=== PATIENT | female | born 1980 | race Caucasian/White ===

== ENCOUNTER 2016-10-17 15:30 | Emergency (ER) | payer BC, OTHER ==
[2016-10-17 15:56] VITALS: BP 137/75; PULSE 69; RESP 18; TEMP 97.9
[2016-10-17] MEDS ORDERED: DIPH,PERTUS(ACELL)TETVAC-LF 0.5 ML VIAL IM ONE (16:07)
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
== END 2016-10-17 16:32 | disposition home or self-care (01) ==
LOC: EC 15:30
DX: S71.151A Open bite, right thigh, initial encounter (principal); Z23 Encounter for immunization; W50.3XXA Accidental bite by another person, initial encounter; Y99.0 Civilian activity done for income or pay
CPT/HCPCS: 90471; 90715; 99283

== ENCOUNTER → 2017-11-27 | Outpatient (CLI) | payer OTHER ==
--- NOTE | 2017-11-28 07:19 | US ---
EXAMINATION TYPE: US pelvic complete DATE OF EXAM: 11/27/2017 COMPARISON: NONE CLINICAL HISTORY: R10.2 Pelvic Pain. Patient states doctor felt uterine enlargement. No pain. TECHNIQUE: Transabdominal (TA). Transabdominal sonographic images of the pelvis were acquired. Date of LMP: 11/13/2017, EXAM MEASUREMENTS: Uterus: 9.0 x 6.8 x 4.7 cm Endometrial Stripe: 0.9 cm Right Ovary: 3.6 x 2.2 x 1.8 cm Left Ovary: 3.3 x 2.0 x 2.0 cm 1. Uterus: Retroverted wnl 2. Endometrium: wnl 3. Right Ovary: wnl 4. Left Ovary: wnl 5. Bilateral Adnexa: wnl 6. Posterior cul-de-sac: no free fluid Cervix- wnl IMPRESSION: Mildly prominent size of the uterus without heterogeneity or endometrial thickening. Ovar ies are unremarkable.
== END | disposition home or self-care (01) ==
LOC: RADUSWWP 16:07
PROVIDERS: ATTEND Family Medicine
DX: R10.2 Pelvic and perineal pain (principal)
CPT/HCPCS: 76856

== ENCOUNTER 2020-05-06 01:36 | Emergency (ER) | payer OTHER ==
[2020-05-06 01:50] VITALS: RESP 18
[2020-05-06 02:32] LABS: Appearance,Urine Clear (Clear); Bacteria,Urine Many /hpf; Bilirubin,Urine Negative (Negative); Blood,Urine Moderate (Negative); Color,Urine Yellow; Glucose,Urine (UA) Negative (Negative); Ketones,Urine Negative (Negative); Leukocyte Esterase,Urine Small (Negative); Mucus,Urine Rare /hpf; Nitrite,Urine Positive (Negative); Protein,Urine Negative (Negative); RBC,Urine 43 /hpf (0-5); Specific Gravity,Urine 1.024 (1.001-1.035); Squamous Epithelial Cell,Urine 2 /hpf (0-4); Urobilinogen,Urine <2.0 mg/dL (<2.0); WBC,Urine 7 /hpf (0-5)
[2020-05-06 02:33] LABS: Basophils # (A) 0.1 k/uL (0-0.2); Basophils % (A) 1 %; Eosinophils # (A) 0.1 k/uL (0-0.7); Eosinophils % (A) 0 %; HCT 44.8 % (34.0-46.0); HGB 15.3 gm/dL (11.4-16.0); Lymphocytes # (A) 1.3 k/uL (1.0-4.8); Lymphocytes % (A) 8 %; MCH 29.3 pg (25.0-35.0); MCHC 34.2 g/dL (31.0-37.0); MCV 85.5 fL (80.0-100.0); Mean Platelet Volume 7.1; Monocytes # (A) 0.5 k/uL (0-1.0); Monocytes % (A) 3 %; Neutrophils # (A) 14.4 k/uL (1.3-7.7); Neutrophils % (A) 88 %; Platelet Count 360 k/uL (150-450); RBC 5.23 m/uL (3.80-5.40); RDW 14.4 % (11.5-15.5); WBC 16.4 k/uL (3.8-10.6)
--- NOTE | 2020-05-06 02:39 | ED ---
Abdominal Pain HPI - General Chief Complaint: Abdominal Pain Stated Complaint: Right lower abd pain Time Seen by Provider: 05/06/20 02:04 Source: patient Mode of arrival: ambulatory Limitations: no limitations - History of Present Illness MD Complaint: abdominal pain Onset/Timin -: hour(s) Location: RUQ, RLQ Radiation: R flank Migration to: no migration Severity: moderate Quality: sharp Consistency: constant Improves With: nothing Worsens With: nothing Associated Symptoms: denies other symptoms - Related Data Previous Rx's Medication Instructions Recorded Amoxicillin/Potassium Clav 1 each PO Q12HR #20 tab 10/17/16 [Augmentin 875-125 Tablet] Hydrocodone/Acetaminophen [[place] 1 each PO Q6HR PRN #20 tab 05/06/20 5-325] Ondansetron Odt [Zofran ODT] 4 mg PO Q8HR PRN #10 tab 05/06/20 Allergies Allergy/AdvReac Type Severity Reaction Status Date / Time No Known Allergies Allergy Verified 05/06/20 01:50 Review of Systems ROS Statement: Those systems with pertinent positive or pertinent negative responses have been documented in the HPI. ROS Other: All systems not noted in ROS Statement are negative. Constitutional: Denies: fever, chills Respiratory: Denies: cough, dyspnea Cardiovascular: Denies: chest pain, palpitations, edema Gastrointestinal: Reports: abdominal pain. Denies: nausea, vomiting, diarrhea, constipation Genitourinary: Denies: dysuria, frequency, hematuria, abnormal menses Musculoskeletal: Denies: back pain Skin: Denies: rash Neurological: Denies: headache, weakness Past Medical History Past Medical History: No Reported History History of Any Multi-Drug Resistant Organisms: None Reported Past Surgical History: Section Past Psychological History: No Psychological Hx Reported Smoking Status: Former smoker Past Alcohol Use History: Rare Past Drug Use History: None Reported General Exam Limitations: no limitations General appearance: alert, in no apparent distress Head exam: Present: atraumatic, normocephalic Eye exam: Present: normal appearance. Absent: scleral icterus, conjunctival injection ENT exam: Present: normal oropharynx Respiratory exam: Present: normal lung sounds bilaterally. Absent: respiratory distress, wheezes, rales, rhonchi, stridor Cardiovascular Exam: Present: regular rate, normal rhythm, normal heart sounds. Absent: systolic murmur, diastolic murmur, rubs, gallop GI/Abdominal exam: Present: soft, tenderness. Absent: distended, guarding, rebound, rigid, mass, pulsatile mass, hernia Extremities exam: Present: normal inspection, normal capillary refill. Absent: pedal edema, calf tenderness Back exam: Present: normal inspection. Absent: CVA tenderness (R), CVA tenderness (L) Neurological exam: Present: alert Skin exam: Present: warm, dry, intact, normal color. Absent: rash Course Vital Signs 05/06/20 05/06/20 05/06/20 01:46 03:00 04:51 Temperature 97.7 F 97.8 F Pulse Rate 77 75 73 Respiratory 18 18 18 Rate Blood Pressure 135/89 138/81 126/72 O2 Sat by Pulse 99 99 98 Oximetry Medical Decision Making - Medical Decision Making Patient's 40-year-old woman with right-sided abdominal pain. Computed to mography scan does show distended gallbladder with multiple stones. She has had good relief with analgesia. We discussed admission for symptomatic cholelithiasis versus outpatient follow-up and at this point patient prefers to have outpatient follow-up. Discussed gallbladder diet changes. Discussed appropriate follow-up with the surgical on-call physician. Discussed return parameters. - Lab Data Result diagrams: 05/06/20 02:08 05/06/20 02:08 Lab Results 05/06/20 05/06/20 05/06/20 Range/Units 02:08 02:08 02:08 WBC 16.4 H (3.8-10.6) k/uL RBC 5.23 (3.80-5.40) m/uL Hgb 15.3 (11.4-16.0) gm/dL Hct 44.8 (34.0-46.0) % MCV 85.5 (80.0-100.0) fL MCH 29.3 (25.0-35.0) pg MCHC 34.2 (31.0-37.0) g/dL RDW 14.4 (11.5-15.5) % Plt Count 360 (150-450) k/uL MPV 7.1 Neutrophils % 88 % Lymphocytes % 8 % Monocytes % 3 % Eosinophils % 0 % Basophils % 1 % Neutrophils # 14.4 H (1.3-7.7) k/uL Lymphocytes # 1.3 (1.0-4.8) k/uL Monocytes # 0.5 (0-1.0) k/uL Eosinophils # 0.1 (0-0.7) k/uL Basophils # 0.1 (0-0.2) k/uL Sodium 137 (137-145) mmol/L Potassium 3.8 (3.5-5.1) mmol/L Chloride 108 H (98-107) mmol/L Carbon Dioxide 25 (22-30) mmol/L Anion Gap 4 mmol/L BUN 13 (7-17) mg/dL Creatinine 0.85 (0.52-1.04) mg/dL Est GFR (CKD-EPI)AfAm >90 (>60 ml/min/1.73 sqM) Est GFR (CKD-EPI)NonAf 86 (>60 ml/min/1.73 sqM) Glucose 121 H (74-99) mg/dL Calcium 9.2 (8.4-10.2) mg/dL Total Bilirubin 0.3 (0.2-1.3) mg/dL AST 20 (14-36) U/L ALT 29 (4-34) U/L Alkaline Phosphatase 70 (38-126) U/L Total Protein 6.1 L (6.3-8.2) g/dL Albumin 3.5 (3.5-5.0) g/dL Amylase 43 (30-110) U/L Lipase 83 (23-300) U/L Urine Color Yellow Urine Appearance Clear (Clear) Urine pH 6.0 (5.0-8.0) Ur Specific [place] 1.024 (1.001-1.035) Urine Protein Negative (Negative) Urine Glucose (UA) Negative (Negative) Urine Ketones Negative (Negative) Urine Blood Moderate H (Negative) Urine Nitrite Positive H (Negative) Urine Bilirubin Negative (Negative) Urine Urobilinogen <2.0 (<2.0) mg/dL Ur Leukocyte Esterase Small H (Negative) Urine RBC 43 H (0-5) /hpf Urine WBC 7 H (0-5) /hpf Ur Squamous Epith Cells 2 (0-4) /hpf Urine Bacteria Many H (None) /hpf Urine Mucus Rare H (None) /hpf Urine HCG, Qual (Not Detectd) 05/06/20 Range/Units 02:08 WBC (3.8-10.6) k/uL RBC (3.80-5.40) m/uL Hgb (11.4-16.0) gm/dL Hct (34.0-46.0) % MCV (80.0-100.0) fL MCH (25.0-35.0) pg MCHC (31.0-37.0) g/dL RDW (11.5-15.5) % Plt Count (150-450) k/uL MPV Neutrophils % % Lymphocytes % % Monocytes % % Eosinophils % % Basophils % % Neutrophils # (1.3-7.7) k/uL Lymphocytes # (1.0-4.8) k/uL Monocytes # (0-1.0) k/uL Eosinophils # (0-0.7) k/uL Basophils # (0-0.2) k/uL Sodium (137-145) mmol/L Potassium (3.5-5.1) mmol/L Chloride (98-107) mmol/L Carbon Dioxide (22-30) mmol/L Anion Gap mmol/L BUN (7-17) mg/dL Creatinine (0.52-1.04) mg/dL Est GFR (CKD-EPI)AfAm (>60 ml/min/1.73 sqM) Est GFR (CKD-EPI)NonAf (>60 ml/min/1.73 sqM) Glucose (74-99) mg/dL Calcium (8.4-10.2) mg/dL Total Bilirubin (0.2-1.3) mg/dL AST (14-36) U/L ALT (4-34) U/L Alkaline Phosphatase (38-126) U/L Total Protein (6.3-8.2) g/dL Albumin (3.5-5.0) g/dL Amylase (30-110) U/L Lipase (23-300) U/L Urine Color Urine Appearance (Clear) Urine pH (5.0-8.0) Ur Specific [place] (1.001-1.035) Urine Protein (Negative) Urine Glucose (UA) (Negative) Urine Ketones (Negative) Urine Blood (Negative) Urine Nitrite (Negative) Urine Bilirubin (Negative) Urine Urobilinogen (<2.0) mg/dL Ur Leukocyte Esterase (Negative) Urine RBC (0-5) /hpf Urine WBC (0-5) /hpf Ur Squamous Epith Cells (0-4) /hpf Urine Bacteria (None) /hpf Urine Mucus (None) /hpf Urine HCG, Qual Not Detected (Not Detectd) Disposition Clinical Impression: Biliary colic Disposition: HOME SELF-CARE Condition: Good Instructions (If sedation given, give patient instructions): Biliary Colic (ED) Prescriptions: Hydrocodone/Acetaminophen [[place] 5-325] 1 each PO Q6HR PRN #20 tab PRN Reason: Pain Ondansetron Odt [Zofran ODT] 4 mg PO Q8HR PRN #10 tab PRN Reason: Nausea Is patient prescribed a controlled substance at d/c from ED?: No Referrals: Radha Garcia DO [Primary Care Provider] - 1-2 days Murphy Vásquez MD [REFERRING] - 1-2 days
[2020-05-06 02:41] LABS: ALT 29 U/L (4-34); AST 20 U/L (14-36); African American GFR (CKD) >90 (>60 ml/min/1.73 sqM); Albumin 3.5 g/dL (3.5-5.0); Alkaline Phosphatase 70 U/L (38-126); Amylase 43 U/L (30-110); Anion Gap 4 mmol/L; Blood Urea Nitrogen 13 mg/dL (7-17); Calcium 9.2 mg/dL (8.4-10.2); Carbon Dioxide 25 mmol/L (22-30); Chloride 108 mmol/L (98-107); Glucose 121 mg/dL (74-99); Lipase 83 U/L (23-300); Non-African American GFR(CKD) 86 (>60 ml/min/1.73 sqM); Potassium 3.8 mmol/L (3.5-5.1); Sodium 137 mmol/L (137-145); Total Bilirubin 0.3 mg/dL (0.2-1.3); Total Protein 6.1 g/dL (6.3-8.2)
--- NOTE | 2020-05-06 03:10 | CT ---
EXAM: CT Abdomen and Pelvis Without Intravenous Contrast CLINICAL HISTORY: ITS.REASON CT Reason: acute right sided abdominal pain TECHNIQUE: Axial computed tomography images of the abdomen and pelvis without intravenous contrast. CTDI is 15 mGy and DLP is 794.8 mGy-cm. This CT exam was performed using one or more of the following dose reduction techniques: automated exposure control, adjustment of the mA and/or kV according to patient size, and/or use of iterative reconstruction technique. COMPARISON: No relevant prior studies available. FINDINGS: Lung bases: Unremarkable. ABDOMEN: Liver: Unremarkable. Gallbladder and bile ducts: Distended gallbladder with gallstones. Pancreas: Unremarkable. Spleen: Unremarkable. Adrenals: Unremarkable. Kidneys and ureters: Nonobstructing calculus with left kidney. No hydronephrosis. Stomach and bowel: Unremarkable. PELVIS: Appendix: Appendix is unremarkable per Bladder: Unremarkable. Reproductive: Unremarkable as visualized. ABDOMEN and PELVIS: Intraperitoneal space: Unremarkable. Bones/joints: No acute fracture. No dislocation. Soft tissues: Tiny fat-containing umbilical hernia. Vasculature: Unremarkable. Lymph nodes: Unremarkable. IMPRESSION: 1. Distended gallbladder with gallstones. No CT evidence of acute cholecystitis. 2. Nonobstructing calculus with left kidney. No hydronephrosis.
[2020-05-06] MEDS ORDERED: HYDROmorphone 0.5 MG/0.5 ML SYRINGE IVP STA (03:33)
[2020-05-06 04:53] VITALS: BP 126/72; PULSE 73; TEMP 97.8
== END 2020-05-06 04:54 | disposition home or self-care (01) ==
LOC: EC 01:36
DX: K80.50 Calculus of bile duct without cholangitis or cholecystitis without obstruction (principal); K82.8 Other specified diseases of gallbladder; Z87.891 Personal history of nicotine dependence
CPT/HCPCS: 36415; 74176; 80053; 81001; 81025; 82150; 83690; 85025; 96374; 99284

== ENCOUNTER → 2020-08-15 | Outpatient (CLI) | payer BC ==
--- NOTE | 2020-08-16 08:32 | MM ---
Reason for exam: screening (asymptomatic). Baseline mammogram. History: Family history of breast cancer in maternal grandmother at age 60. Taking hormonal contraceptives beginning at age 40. Physical Findings: Nurse did not find any significant physical abnormalities on exam. MG 3D Screening Mammo W/Cad Bilateral CC and MLO view(s) were taken. The breast tissue is heterogeneously dense. This may lower the sensitivity of mammography. Left central asymmetric densities do not appear to persist on 3D images. Precautionary 6 month follow up recommended. Otherwise, no discrete abnormality. These results were verbally communicated with the patient and result sheet given to the patient on 08/15/20. ASSESSMENT: Probably benign, BI-RAD 3 RECOMMENDATION: Follow-up diagnostic mammogram of the left breast in 6 months.
== END | disposition home or self-care (01) ==
LOC: RADMAMWWP 14:17
PROVIDERS: ATTEND Family Medicine
DX: Z12.31 Encounter for screening mammogram for malignant neoplasm of breast (principal)
CPT/HCPCS: 77063; 77067

== ENCOUNTER → 2021-03-10 | Outpatient (CLI) | payer BC ==
--- NOTE | 2021-03-13 12:17 | MM ---
Reason for exam: follow-up at short interval from prior study. Last mammogram was performed 7 months ago. History: Family history of breast cancer in maternal grandmother at age 60. Taking hormonal contraceptives beginning at age 40. Physical Findings: Nurse did not find any significant physical abnormalities on exam. MG 3D Diag Mammo W/Cad LT CC and MLO view(s) were taken of the left breast. Prior study comparison: August 15, 2020, bilateral MG 3d screening mammo w/cad. The breast tissue is heterogeneously dense. This may lower the sensitivity of mammography. No significant new findings when compared with previous films. These results were verbally communicated with the patient and result sheet given to the patient on 03/10/21. ASSESSMENT: Benign, BI-RAD 2 RECOMMENDATION: Return to routine screening mammogram schedule for both breasts. Back on schedule.
== END | disposition home or self-care (01) ==
LOC: RADMAMWWP 14:23
PROVIDERS: ATTEND Family Medicine
DX: R92.2 Inconclusive mammogram (principal); Z80.3 Family history of malignant neoplasm of breast
CPT/HCPCS: 77061; 77065

== ENCOUNTER → 2022-10-17 | Outpatient (CLI) | payer BC ==
--- NOTE | 2022-10-18 19:28 | MM ---
Reason for Exam: Screening (asymptomatic). Last screening mammogram was performed 12 month(s) ago. Patient History: Menarche at age 12. First Full-Term at age 21. Hormonal Contraceptives for 2 years from age 40 until age 42. Maternal grandmother had breast cancer, age 60. Risk Values: Sherrell 5 year model risk: 0.6%. NCI Lifetime model risk: 8.9%. Prior Study Comparison: 08/15/2020 Bilateral Screening Mammogram, [facility]. 03/10/2021 Left Diagnostic Mammogram, [facility]. 10/16/2021 Bilateral Screening Mammogram, [facility]. Tissue Density: The breast tissue is heterogeneously dense. This may lower the sensitivity of mammography. Findings: Analyzed By CAD. Obscured chronic nodularity central left MLO view middle to posterior depth on 3-D images. The configuration of the patient's bilateral breast tissue remains unchanged. There is no suspicious group of microcalcifications or new suspicious mass in either breast. Overall Assessment: Benign, BI-RAD 2 Management: Screening Mammogram of both breasts in 1 year. . Patient should continue monthly self-breast exams. A clinical breast exam by your physician is recommended on an annual basis. This exam should not preclude additional follow-up of suspicious palpable abnormalities. Note on Sherrell scores and lifetime risk: 1. A Sherrell score greater than 3% is considered moderate risk. If this is the case, consider specialist referral to assess eligibility for a risk reducing agent. 2. If overall lifetime risk for the development of breast cancer is 20% or higher, the patient may qualify for future screening with alternating mammogram and breast MRI. Electronically signed and approved by: Mary Grant M.D. Radiologist
== END | disposition home or self-care (01) ==
LOC: RADMAMWWP 16:24
PROVIDERS: ATTEND Family Medicine
DX: Z12.31 Encounter for screening mammogram for malignant neoplasm of breast (principal); Z80.3 Family history of malignant neoplasm of breast
CPT/HCPCS: 77063; 77067

== ENCOUNTER → 2024-01-10 | Outpatient (CLI) | payer BC ==
--- NOTE | 2024-02-05 11:31 | MM ---
Reason for Exam: Screening (asymptomatic). Last mammogram was performed 1 year(s) and 3 month(s) ago. Patient History: Menarche at age 12. First Full-Term at age 21. Hormonal Contraceptives for 2 years from age 40 until age 42. Maternal grandmother had breast cancer, age 60. Last menstrual period: 08/25/2023 Risk Values: Sherrell 5 year model risk: 0.6%. NCI Lifetime model risk: 8.8%. Prior Study Comparison: 03/10/2021 Left Diagnostic Mammogram, [facility]. 10/16/2021 Bilateral Screening Mammogram, [facility]. 10/17/2022 Bilateral MG 3D screening mammo w/cad, [facility]. Tissue Density: The breasts are heterogeneously dense, which may obscure small masses. Findings: Analyzed By CAD. Right breast: There is no suspicious group of microcalcifications or new suspicious mass. Left breast: There is no suspicious group of microcalcifications or new suspicious mass. Overall Assessment: Negative, BI-RAD 1 Management: Screening Mammogram of both breasts in [address] [facility] will attempt to contact patient to return for supplemental views and ultrasound if indicated. Patient should continue monthly self-breast exams. A clinical breast exam by your physician is recommended on an annual basis. This exam should not preclude additional follow-up of suspicious palpable abnormalities. Note on Sherrell scores and lifetime risk: 1. A Sherrell score greater than 3% is considered moderate risk. If this is the case, consider specialist referral to assess eligibility for a risk reducing agent. 2. If overall lifetime risk for the development of breast cancer is 20% or higher, the patient may qualify for future screening with alternating mammogram and breast MRI. Electronically signed and approved by: Sherman Canales DO
== END | disposition home or self-care (01) ==
LOC: RADMAMWWP 15:30
PROVIDERS: ATTEND Family Medicine
DX: Z12.31 Encounter for screening mammogram for malignant neoplasm of breast (principal); R92.333 Mammographic heterogeneous density, bilateral breasts; Z80.3 Family history of malignant neoplasm of breast
CPT/HCPCS: 77063; 77067